=== PATIENT | male | born 1945 | race Two or more races ===

== ENCOUNTER 2022-09-27 06:18 | Emergency (ER) | payer OTHER ==
[~2022-09-27] VITALS: Ht 172.7 cm; Wt 68.1 kg
[2022-09-27] MEDS ORDERED: EPINEPHrine HCL 1 MG/10 ML SYRG IV ONE (06:19)
[2022-09-27] MEDS ORDERED: CALCIUM CHLOR(10%) 100MG/ML 10ML SYRINGE IV ONE (06:19)
[2022-09-27] MEDS ORDERED: MAGNESIUM SULF 50% 40 MEQ/10 ML VL IV ONE (06:19)
[2022-09-27] MEDS ORDERED: SODIUM BICARBONATE 8.4% INJ 50ML SYRINGE IV ONE (06:19)
[2022-09-27] MEDS ORDERED: NOREPINEPHRINE 8 MG/250ML KIT 250 ML IV ONE (06:28)
[2022-09-27 06:33] VITALS: BP 88/55
[2022-09-27] MEDS ORDERED: EPINEPHrine HCL 250 ML IV ONE (06:35)
== END 2022-09-27 06:44 ==
LOC: ER 06:18 → EDBD 06:18 → ER 06:44
DX: I46.9 Cardiac arrest, cause unspecified (principal)
CPT/HCPCS: 36556; 92950; 99291; J0171; J3475; 94002